=== PATIENT | male | born 1985 | race Caucasian/White ===

== ENCOUNTER 2018-09-02 18:26 | Emergency (ER) | payer SELFPAY ==
[2018-09-02 18:26] VITALS: BP 159/98; PULSE 82; RESP 16; O2SAT 99
[2018-09-02 18:27] VITALS: BP 159/98; PULSE 81; RESP 16; TEMP 36.1; O2SAT 99; BMI 20.5
--- NOTE | 2018-09-02 20:12 | ED.RN ---
PT INITIALLY CALLED FOR AT 1939, NO ANDRIY IN ED. PT CALLED AGAIN AT 2010, NOT IN ED. REGISTRATION MADE AWARE AND PT MARKED LWBS.
== END 2018-09-02 20:19 | disposition left against medical advice (07) ==
LOC: ED 20:16
PROVIDERS: Emergency Provider Emergency Medicine
DX: R69 Illness, unspecified (principal)

== ENCOUNTER 2020-12-23 10:05 | Inpatient (IN) | payer MEDICAID, SELFPAY ==
[2020-12-23 10:05] VITALS: BP 146/100; PULSE 119; RESP 16; TEMP 36; O2SAT 99; BMI 23.1
--- NOTE | 2020-12-23 10:16 | ED.DCSUM_ITS ---
- ER Visit Summary Date of Service: 12/23/20 Chief Complaint: Here for opiate detox History of Present Illness: The patient is a 35 M with no primary care physician. He reports that he snorts heroin/fentanyl daily for the past 3 months. Last use was approximately 7 hours ago. Is never been through detox. States it is starting to have withdrawal symptoms and has chills. Patient denies any IV drug abuse. Reports he occasionally use marijuana and methamphetamine. Review of systems: General: No fever, cold sweats. Cardiovascular: No chest pain, palpitations. Respiratory: No cough, shortness of breath, dyspnea on exertion. Gastrointestinal: No abdominal pain, nausea, vomiting, diarrhea, melena, or hematochezia. Genitourinary: No dysuria, frequency, hematuria. Skin: No rash. Neuro: No headache, numbness, weakness. Physical Examination: Vitals: Stable. Afebrile. General: Well-nourished and well-developed. Head: Normocephalic atraumatic. Neck: Supple, no lymphadenopathy. No JVD. Nontender. Cardiovascular: Tachycardic regular rhythm. No murmurs. Respiratory: No respiratory distress. Clear to auscultation bilaterally. Abdominal: Soft, nontender, nondistended, normal bowel sounds. No guarding, rebound, or peritoneal signs. Back: Nontender. Extremities: Nontender, no edema. Skin: Normal color, no rash. Neurologic: Alert and oriented ?3. Cranial nerves II through XII are intact. Normal strength and sensation. Psych: Normal affect. Test Results: CBC is normal. Chem-7 shows a potassium 3.4. LFTs show an AST of 14. Tox screen shows opiates and methamphetamine. Emergency Department Course and Treatment: Patient reports that he feels very anxious. Is given a dose of Vistaril p.o. He is resting comfortably. Treatment Plan: Patient be discussed the hospitalist admitted for further evaluation and treatment. Disposition: Admitted in stable condition. Impression: 1. Opiate abuse. 2. Anxiety. This note was generated with [employer] software. It may contain incorrect words, spelling, and punctuation that were not noted in review of the chart prior to signing ED Disposition - Plan for ED Patient: Referrals: Care Physician,No Primary [Primary Care Provider] -
[2020-12-23] MEDS: hydrOXYzine PAM 25 MG Capsule 50 MG PO (10:18)
[2020-12-23 10:30] LABS: Absolute Lymphocyte Count 2.82 X10^3/uL (0.83-4.51); Absolute Neutrophil Count 5.6 X10^3/uL (2.0-7.7); Basophil# 0.04 X10^3/uL; Basophil% 0.4 % (0-1); Eosinophil# 0.14 X10^3/uL; Eosinophils% 1.5 % (0-5); Hematocrit 45.2 % (40-54); Hemoglobin 15.5 g/dL (13.0-16.5); Lymphocyte # 2.82 X10^3/ul (4.0); Lymphocyte % 30.2 % (19-41); Mean Corp Hgb Conc 34.3 g/dL (32-36); Mean Corpuscular Hgb 29.3 pg (27.0-32.0); Mean Corpuscular Volume 85.4 fL (80-94); Mean Platelet Vol. 9.8 fl (6.2-12.0); Monocyte# 0.68 X10^3/uL; Monocyte% 7.3 % (0-10); NRBC Flagged by Analyzer 0 % (0-5); Neutrophil # 5.63 X10^3/uL (2.7-7.7); Neutrophil % 60.4 % (47-70); Platelet Count 431 K/mm3 (150-450); RBC Distribution Width CV 11.7 % (11.6-14.6); RBC Distribution Width SD 35.6 fl (35.1-43.9); Red Blood Count 5.29 M/mm3 (4.6-6.2); White Blood Count 9.3 K/mm3 (4.4-11.0)
--- NOTE | 2020-12-23 10:42 | HP.PCM_ITS ---
Problem List (1) Acute hyperactive opioid withdrawal delirium Status: Acute (2) Polysubstance dependence including opioid drug with daily use Status: Acute (3) Cigarette nicotine dependence Status: Acute History of Present Illness Date of Admission: 12/23/20 Chief Complaint: Acute opioid withdrawal syndrome. [] This is a 35-year-old gentleman with history of chronic opioid use for about 10 to 15 years came to ER for anxiety, restlessness, sweating muscle aches and pain, symptomatology of acute opioid withdrawal syndrome. Patient wants medical treatment. Last year, he was in the assisted for opioid dependence and was sent to inpatient rehab 180 and was there for a month but he relapsed. Patient denies using IV needle, denies infectious disease including hepatitis B, C and HIV. Denies any major complications in the past including bacteremia, abscess, endocarditis or osteomyelitis. In ED, patient was tachycardic, heart rate about 120 per night, blood pressure 146/100 but not tachypneic or hypoxic. Basic labs done in ED was normal except potassium 3.4. U tox positive of opioids, amphetamines. Serum alcohol level less than 3. Patient denies chronic alcohol use current but he was a heavy liquor drinker for 10 years, quit about 5 years ago. Denies any stigmata of chronic liver disease/cirrhosis Past Medical History Allergies No Known Allergies Allergy (Verified 12/23/20 10:06) Home Medications: Ambulatory Orders Medication Instructions Recorded NK 09/02/18 Smoking Status: Current every day smoker - Cigarette smoking 1-1 and half packs per day Alcohol: None Drugs: Cocaine, Heroin - *Family History Maternal History Items: - - Depression Review of Systems Constitutional: Reports: Chills, Night Sweats, Malaise, Weakness, Fatigue. Denies: Fever HEENT: Denies: Head Aches, Sinus Congestion, Sinus Drainage Cardiovascular: Denies: Chest Pain, Palpitations Respiratory: Denies: Cough, Shortness of breath at rest, Sputum production Gastrointestinal: Denies: Abdominal Pain, Nausea, Vomiting Genitourinary: Denies: Dysuria Musculoskeletal: Reports: Muscle pain. Denies: Joint Pain, Joint Tenderness Skin: Denies: Rash, Wounds Neurological: Denies: Numbness, Tingling, Focal weakness Psychiatric: Reports: Anxiety, Depression. Denies: Homicidal Ideations, Suicidal Ideations Hematologic/ Lymphatic: Denies: Easy Bruising, Easy Bleeding VTE Information - Inpt Only VTE Present on Admission: No VTE Mechan Device Prophylaxis: None VTE Pharm Prophylaxis ordered?: No Reason prophylaxis not ordered:: Procedure Not Indicated Objective: Physical exam General: Alert, Oriented x3, Cooperative HEENT: Atraumatic, PERRLA, EOMI, Normocephalic Oral: No Gingival or Mucosal Lesions/ Ulcerations Neck: Supple, No JVD, Negative Carotid Bruits Lungs: Air entry equal in bilateral lung bases. No crepitation/rhonchi Cardiovascular: Regular rate, Regular Rhythm, Normal S1, Normal S2, No murmurs Abdomen: Bowel Sounds Present, Soft, Non Tender, Non-Distended : No renal angle tenderness. No suprapubic tenderness. Extremities: No edema, Capillary Refill Less than 3 Seconds Skin: No rashes, No breakdown Musculoskeletal: No Tenderness to Palpation of Joints or Extremities Neurological: Cranial nerves II-XII grossly intact, Deep Tendon Reflexes 2+/4 and Symmetrical, Neuro grossly intact Psych/Mental Status: Anxious, restless. - Physical Exam Vitals/I&O's: Vital Signs Temp Pulse Resp BP Pulse Ox 96.8 F L 119 H 16 146/100 H 99 12/23/20 10:05 12/23/20 10:05 12/23/20 10:05 12/23/20 10:05 12/23/20 10:05 Oxygen Delivery Method Room Air Weight: 180 lb Body Mass Index (BMI) 23.1 Laboratory Results 12/23/20 10:20: WBC 9.3, RBC 5.29, Hgb 15.5, Hct 45.2, MCV 85.4, MCH 29.3, MCHC 34.3, RDW Std Deviation 35.6, RDW Coeff of Kevin 11.7, Plt Count 431, MPV 9.8, Immature Gran % (Auto) 0.200, Neut % (Auto) 60.4, Lymph % (Auto) 30.2, [place] % (Auto) 7.3, Eos % (Auto) 1.5, Baso % (Auto) 0.4, Absolute Neuts (auto) 5.6, Absolute Lymphs (auto) 2.82, Nucleated RBC % 0 12/23/20 10:20: Sodium Pending, Potassium Pending, Chloride Pending, Carbon Dioxide Pending, Anion Gap Pending, BUN Pending, Creatinine Pending, Est GFR (MDRD) Af Amer Pending, Est GFR (MDRD) Non-Af Pending, BUN/Creatinine Ratio Pending, Glucose Pending, Calcium Pending, Total Bilirubin Pending, AST Pending, ALT Pending, Alkaline Phosphatase Pending, Total Protein Pending, Albumin Pending 12/23/20 10:20: Ethyl Alcohol Pending 12/23/20 10:22: Urine Opiates Screen Pending, Urine Methadone Screen Pending, Ur Barbiturates Screen Pending, Ur Phencyclidine Scrn Pending, Ur Amphetamines Screen Pending, U Methamphetamin-MDMA Pending, U Benzodiazepines Scrn Pending, Urine Cocaine Screen Pending, U Cannabinoids Screen Pending, Ur Drug Screen Comment Assessment/Plan All Active Problems Acute hyperactive opioid withdrawal delirium (Acute) Polysubstance dependence including opioid drug with daily use (Acute) Cigarette nicotine dependence (Acute) This is a 35-year-old gentleman with history of chronic opioid use admitted for acute opioid withdrawal syndrome 1. Acute opioid withdrawal syndrome: Patient is being admitted on [facility] floor. Started on buprenorphine, order set along with other supportive medications including gabapentin, clonidine, hydroxyzine, trazodone and methocarbamol. Patient uses one quarter to half gram of fentanyl every day. He mainly ages through his snorting or smoking. Mild hypokalemia, potassium replaced 2. Chronic opioid use, dependence and tolerance along with intermittent methamphetamine/crack cocaine: Counseling done to quit. Consult 180. 3. Chronic cigarette smoking: On nicotine patch. Counseled quitting smoking/nicotine use. 4. Anxiety and depression: Patient was using Wellbutrin in the past. His f amily history of depression and his mother on Zoloft. VTE prophylaxis: Low risk early ambulation encouraged. Inpatient E&M: [id number] Init Hosp L3
[2020-12-23 10:46] LABS: ALB/GLOB Ratio 1.2 RATIO (0.9-2.4); AST(SGOT) 14 U/L (15-37); Alanine Aminotransfer ALT/SGPT 26 U/L (16-61); Albumin, Serum 4.2 g/dL (3.2-5.0); Alkaline Phosphatase 60 U/L (45-117); Anion Gap 7 (5-15); BUN 8 mg/dL (7-18); BUN/Creat Ratio 7.6 RATIO (10-20); Calcium,Total 9.2 mg/dL (8.5-10.1); Chloride 104 mmol/L (98-107); Creatinine, Serum 1.05 mg/dL (0.70-1.30); EST Glomerular Filtration Rate 85 mL/min (>60); Est Glom Filt Rate - Afr Amer 103 mL/min (>60); Globulin 3.5 g/dL (2.2-4.2); Glucose 105 mg/dL (74-106); Potassium 3.4 mmol/L (3.5-5.1); Protein, Total 7.7 g/dL (6.4-8.2); Sodium Level 139 mmol/L (136-145)
[2020-12-23 10:49] LABS: Amphetamine Urine VISTA POSITIVE (<1000 ng/mL); Barbiturate Urine VISTA NEGATIVE (< 200 ng/mL); Benzodiazepine Urine VISTA NEGATIVE (< 200 ng/mL); Cocaine Urine VISTA NEGATIVE (< 300 ng/mL); Ecstacy Urine VISTA NEGATIVE (< 500 ng/mL); Methadone Urine VISTA NEGATIVE (< 300 ng/mL); PCP Urine VISTA NEGATIVE (< 25 ng/mL); THC Urine VISTA NEGATIVE (< 50 ng/mL); Vista UDS pH Range 5
[2020-12-23 11:11] LABS: Prothrombin Time (Protime)PT. 12.2 SECONDS (11.7-14.9)
[2020-12-23 11:15] LABS: Alcohol, Blood (Medical)-Serum < 3.0 mg/dL
[2020-12-23 11:16] VITALS: BP 136/99; PULSE 110; RESP 15; TEMP 35.9; O2SAT 98
--- NOTE | 2020-12-23 11:28 | CM.ED ---
Social Work Patient to admit to [facility] program. This social media senior associate unable to meet with patient prior to patient admission to unit. Telephone call to [facility], Anjana updated on patient admission to [facility] program. Linda ROCHA, MERRICK
[2020-12-23 11:43] VITALS: BMI 23.4; BMI 23.5
[2020-12-23 12:05] VITALS: BP 140/78; PULSE 90; RESP 18; TEMP 36.6; O2SAT 100
--- NOTE | 2020-12-23 12:13 | ADDICTION ---
This service writer met with PT in his room to complete ASAM assessment and to plan for d/c. All assessments completed and faxed to [facility] and placed in PT's chart. PT to directly admit into [facility] post d/c from [facility]. Admit date planned for 12/26/20.
[2020-12-23] MEDS: Buprenorphine HCl 2 MG TAB.SUBL SL ×2 (13:12→21:44)
[2020-12-23] MEDS: Potassium Chloride Oral Tablet 20 MEQ 40 MEQ PO (13:38)
[2020-12-23 17:48] VITALS: BP 121/79; PULSE 108; RESP 16; TEMP 36.8; O2SAT 98
[2020-12-23 18:05] VITALS: PULSE 108
[2020-12-23 21:47] VITALS: BP 111/75; PULSE 101; RESP 18; TEMP 36.6; O2SAT 97
[2020-12-24] MEDS: Buprenorphine HCl 2 MG TAB.SUBL SL ×3 (04:54→21:19)
[2020-12-24 04:55] VITALS: BP 149/86; PULSE 93; RESP 16; TEMP 36.6; O2SAT 96
[2020-12-24 10:55] VITALS: BP 135/79; PULSE 94; RESP 18; TEMP 37; O2SAT 100
[2020-12-24 13:07] VITALS: BP 138/87
[2020-12-24] MEDS: Methocarbamol 750 MG Tablet 1500 MG PO (13:07)
[2020-12-24] MEDS: Dicyclomine 10 MG Capsule 20 MG PO (13:08)
[2020-12-24] MEDS: hydrOXYzine PAM 25 MG Capsule 50 MG PO (13:08)
[2020-12-24] MEDS: Ondansetron 8 MG Tablet PO (13:08)
[2020-12-24] MEDS: Gabapentin 300 MG Capsule PO (13:08)
[2020-12-24] MEDS: cloNIDine HCl 0.1 MG Tablet PO (13:08)
[2020-12-24] MEDS: Ibuprofen 600 MG Tablet PO (13:08)
--- NOTE | 2020-12-24 13:50 | PCM.PN.HOSP ---
Patient Problems: Active and Suspected Problems Acute hyperactive opioid withdrawal delirium (Acute) Polysubstance dependence including opioid drug with daily use (Acute) Cigarette nicotine dependence (Acute) Reason for Visit: Follow-up for opioid withdrawal Objective: Seen and examined. Patient does not have significant withdrawal symptoms including tremors also has anxiety and restlessness. Physical exam General: Alert, Oriented x3, Cooperative HEENT: Atraumatic, PERRLA, EOMI, Normocephalic Oral: No Gingival or Mucosal Lesions/ Ulcerations Neck: Supple, No JVD, Negative Carotid Bruits Lungs: Air entry equal in bilateral lung bases. No crepitation/rhonchi Cardiovascular: Regular rate, Regular Rhythm, Normal S1, Normal S2, No murmurs Abdomen: Bowel Sounds Present, Soft, Non Tender, Non-Distended : No renal angle tenderness. No suprapubic tenderness. Extremities: No edema, Capillary Refill Less than 3 Seconds Skin: No rashes, No breakdown Musculoskeletal: No Tenderness to Palpation of Joints or Extremities Neurological: Cranial nerves II-XII grossly intact, Deep Tendon Reflexes 2+/4 and Symmetrical, Neuro grossly intact Psych/Mental Status: Anxious and restless. Vitals/I&O's: Vital Signs Temp Pulse Resp BP Pulse Ox 98.6 F 94 18 138/87 H 100 12/24/20 10:55 12/24/20 10:55 12/24/20 10:55 12/24/20 13:07 12/24/20 10:55 Oxygen Delivery Method Room Air Weight: 182 lb 12.211 oz Body Mass Index (BMI) 23.4 Intake and Output for Last 24 Hours 12/22/20 12/23/20 12/24/20 23:59 23:59 23:59 Intake Total 240 / 240 Balance 240 / 240 Current Medications Acetaminophen (Acetaminophen 325 Mg Tablet) 650 mg PO Q4H PRN PRN PRN Reason: Temp > 100.4 F Al Hydroxide/Mg Hydroxide (Mag Hydrox/Al Hydrox/Simeth 30 Ml Udc) 30 ml PO Q6H PRN PRN PRN Reason: dyspesia Bisacodyl (Bisacodyl 10 Mg Suppository) 10 mg RC DAILY PRN PRN Reason: Constipation Buprenorphine HCl (Buprenorphine Hcl 2 Mg Tab.Subl) 2 mg SL Q8H MIRZA; Taper Stop: 12/26/20 13:29 Last Admin: 12/24/20 13:01 Dose: 2 mg Documented by: Clonidine (Clonidine Hcl 0.1 Mg Tablet) 0.1 mg PO Q8H PRN PRN PRN Reason: RESTLESSNESS Last Admin: 12/24/20 13:08 Dose: 0.1 mg Documented by: Dicyclomine HCl (Dicyclomine 10 Mg Capsule) 20 mg PO Q6H PRN PRN PRN Reason: Abdominal Discomfort Last Admin: 12/24/20 13:08 Dose: 20 mg Documented by: Gabapentin (Gabapentin 300 Mg Capsule) 300 mg PO Q8H PRN PRN PRN Reason: moderate to severe anxiety Last Admin: 12/24/20 13:08 Dose: 300 mg Documented by: Hydroxyzine Pamoate (Hydroxyzine Urvashi 25 Mg Capsule) 50 mg PO Q6H PRN PRN PRN Reason: mild anxiety Last Admin: 12/24/20 13:08 Dose: 50 mg Documented by: Sodium Chloride () 250 mls @ 15 mls/hr IV .[id number] PRN PRN Reason: Saline Flush Sodium Chloride () 250 mls @ 15 mls/hr IV .[id number] PRN PRN Reason: Additional IVPB Infusion Ibuprofen (Ibuprofen 600 Mg Tablet) 600 mg PO Q8H PRN PRN PRN Reason: PAIN Last Admin: 12/24/20 13:08 Dose: 600 mg Documented by: Loperamide HCl (Loperamide 2 Mg Capsule) 2 mg PO Q4H PRN PRN PRN Reason: LOOSE STOOLS Methocarbamol (Methocarbamol 750 Mg Tablet) 1,500 mg PO Q6H PRN PRN PRN Reason: MUSCLE SPASM Last Admin: 12/24/20 13:07 Dose: 1,500 mg Documented by: Nicotine (Nicotine 21 Mg Patch) 21 mg TD DAILY MIRZA Last Admin: 12/24/20 08:58 Dose: 21 mg Documented by: Ondansetron HCl (Ondansetron 8 Mg Tablet) 8 mg PO Q8H PRN PRN PRN Reason: NAUSEA Last Admin: 12/24/20 13:08 Dose: 8 mg Documented by: Senna (Senna Tablet) 2 tablet PO QHS PRN PRN PRN Reason: Constipation Sodium Chloride (0.9% Saline Lock 10 Ml Syringe) 10 - 40 ml IV UD PRN PRN Reason: SALINE FLUSH Trazodone HCl (Trazodone 100 Mg Tablet) 100 mg PO QHS PRN PRN PRN Reason: INSOMNIA STROKE Vital Signs/Narrative: Vital Signs Temp Pulse Resp BP BP Pulse Ox 12/24/20 13:07 138/87 H 12/24/20 10:55 98.6 F 94 18 135/79 H 100 Medical Necessity - Tobacco Use Smoking Status: Current every day smoker Assessment/Plan All Active Problems Acute hyperactive opioid withdrawal delirium (Acute) Polysubstance dependence including opioid drug with daily use (Acute) Cigarette nicotine dependence (Acute) This is a 35-year-old gentleman with history of chronic opioid use admitted for acute opioid withdrawal syndrome 1. Acute opioid withdrawal syndrome: [facility] Started on buprenorphine, order set along with other supportive medications including gabapentin, clonidine, hydroxyzine, trazodone and methocarbamol. Patient uses one quarter to half gram of fentanyl every day. He mainly ages through his snorting or smoking. Mild hypokalemia, potassium replaced 12/24: Continue buprenorphine and other supportive medications. 2. Chronic opioid use, dependence and tolerance along with intermittent methamphetamine/crack cocaine: Counseling done to quit. Consult 180. 12/24: Patient agreed to quit opioids. 3. Chronic cigarette smoking: On nicotine patch. Counseled quitting smoking/nicotine use. 4. Anxiety and depression: Patient was using Wellbutrin in the past. His family history of depression and his mother on Zoloft. VTE prophylaxis: Low risk early ambulation encouraged. Inpatient E&M: [id number] Subs Hosp L2
[2020-12-24 17:00] VITALS: BP 112/65; PULSE 89; RESP 18; TEMP 36.4; O2SAT 97
[2020-12-24 21:15] VITALS: BP 112/70; PULSE 64; RESP 18; TEMP 36.5; O2SAT 98
[2020-12-25 03:07] VITALS: BP 124/73; PULSE 78; RESP 16; TEMP 36.7; O2SAT 100
[2020-12-25] MEDS: cloNIDine HCl 0.1 MG Tablet PO ×2 (03:13→17:02)
[2020-12-25] MEDS: Gabapentin 300 MG Capsule PO ×2 (03:13→17:02)
[2020-12-25] MEDS: hydrOXYzine PAM 25 MG Capsule 50 MG PO ×3 (03:13→17:02)
[2020-12-25 05:29] VITALS: BP 113/70; PULSE 94; RESP 16; TEMP 36.9; O2SAT 95
[2020-12-25] MEDS: Buprenorphine HCl 2 MG TAB.SUBL SL ×2 (05:31→13:34)
--- NOTE | 2020-12-25 11:04 | PCM.PN.HOSP ---
Patient Problems: Active and Suspected Problems Acute hyperactive opioid withdrawal delirium (Acute) Polysubstance dependence including opioid drug with daily use (Acute) Cigarette nicotine dependence (Acute) Reason for Visit: Follow-up for opioid withdrawal syndrome Objective: Patient symptoms are well controlled. Sitting on the bed. Stocking coherent. Denies hallucinations, myoclonus or seizure-like activity. Physical exam General: Alert, Oriented x3, Cooperative HEENT: Atraumatic, PERRLA, EOMI, Normocephalic Oral: No Gingival or Mucosal Lesions/ Ulcerations Neck: Supple, No JVD, Negative Carotid Bruits Lungs: Air entry equal in bilateral lung bases. No crepitation/rhonchi Cardiovascular: Regular rate, Regular Rhythm, Normal S1, Normal S2, No murmurs Abdomen: Bowel Sounds Present, Soft, Non Tender, Non-Distended : No renal angle tenderness. No suprapubic tenderness. Extremities: No edema, Capillary Refill Less than 3 Seconds Skin: No rashes, No breakdown Musculoskeletal: No Tenderness to Palpation of Joints or Extremities Neurological: Cranial nerves II-XII grossly intact, Deep Tendon Reflexes 2+/4 and Symmetrical, Neuro grossly intact Psych/Mental Status: Normal Affect, Appropriate. Vitals/I&O's: Vital Signs Temp Pulse Resp BP Pulse Ox 98.4 F 94 16 113/70 95 12/25/20 05:29 12/25/20 05:29 12/25/20 05:29 12/25/20 05:29 12/25/20 05:29 Oxygen Delivery Method Room Air Weight: 182 lb 12.211 oz Body Mass Index (BMI) 23.4 Intake and Output for Last 24 Hours 12/23/20 12/24/20 12/25/20 23:59 23:59 23:59 Intake Total 240 / 240 Balance 240 / 240 Current Medications Acetaminophen (Acetaminophen 325 Mg Tablet) 650 mg PO Q4H PRN PRN PRN Reason: Temp > 100.4 F Al Hydroxide/Mg Hydroxide (Mag Hydrox/Al Hydrox/Simeth 30 Ml Udc) 30 ml PO Q6H PRN PRN PRN Reason: dyspesia Bisacodyl (Bisacodyl 10 Mg Suppository) 10 mg RC DAILY PRN PRN Reason: Constipation Buprenorphine HCl (Buprenorphine Hcl 2 Mg Tab.Subl) 2 mg SL Q8H MIRZA; Taper Stop: 12/26/20 13:29 Last Admin: 12/25/20 05:31 Dose: 2 mg Documented by: Clonidine (Clonidine Hcl 0.1 Mg Tablet) 0.1 mg PO Q8H PRN PRN PRN Reason: RESTLESSNESS Last Admin: 12/25/20 03:13 Dose: 0.1 mg Documented by: Dicyclomine HCl (Dicyclomine 10 Mg Capsule) 20 mg PO Q6H PRN PRN PRN Reason: Abdominal Discomfort Last Admin: 12/24/20 13:08 Dose: 20 mg Documented by: Gabapentin (Gabapentin 300 Mg Capsule) 300 mg PO Q8H PRN PRN PRN Reason: moderate to severe anxiety Last Admin: 12/25/20 03:13 Dose: 300 mg Documented by: Hydroxyzine Pamoate (Hydroxyzine Urvashi 25 Mg Capsule) 50 mg PO Q6H PRN PRN PRN Reason: mild anxiety Last Admin: 12/25/20 09:50 Dose: 50 mg Documented by: Sodium Chloride () 250 mls @ 15 mls/hr IV .[id number] PRN PRN Reason: Saline Flush Sodium Chloride () 250 mls @ 15 mls/hr IV .[id number] PRN PRN Reason: Additional IVPB Infusion Ibuprofen (Ibuprofen 600 Mg Tablet) 600 mg PO Q8H PRN PRN PRN Reason: PAIN Last Admin: 12/24/20 13:08 Dose: 600 mg Documented by: Loperamide HCl (Loperamide 2 Mg Capsule) 2 mg PO Q4H PRN PRN PRN Reason: LOOSE STOOLS Methocarbamol (Methocarbamol 750 Mg Tablet) 1,500 mg PO Q6H PRN PRN PRN Reason: MUSCLE SPASM Last Admin: 12/24/20 13:07 Dose: 1,500 mg Documented by: Nicotine (Nicotine 21 Mg Patch) 21 mg TD DAILY MIRZA Last Admin: 12/25/20 09:50 Dose: 21 mg Documented by: Ondansetron HCl (Ondansetron 8 Mg Tablet) 8 mg PO Q8H PRN PRN PRN Reason: NAUSEA Last Admin: 12/24/20 13:08 Dose: 8 mg Documented by: Senna (Senna Tablet) 2 tablet PO QHS PRN PRN PRN Reason: Constipation Sodium Chloride (0.9% Saline Lock 10 Ml Syringe) 10 - 40 ml IV UD PRN PRN Reason: SALINE FLUSH Trazodone HCl (Trazodone 100 Mg Tablet) 100 mg PO QHS PRN PRN PRN Reason: INSOMNIA Medical Necessity - Tobacco Use Smoking Status: Current every day smoker Assessment/Plan All Active Problems Acute hyperactive opioid withdrawal delirium (Acute) Polysubstance dependence including opioid drug with daily use (Acute) Cigarette nicotine dependence (Acute) This is a 35-year-old gentleman with history of chronic opioid use admitted for acute opioid withdrawal syndrome 1. Acute opioid withdrawal syndrome: Patient is being admitted on [facility] floor. Started on buprenorphine, order set along with other supportive medications including gabapentin, clonidine, hydroxyzine, trazodone and methocarbamol. Patient uses one quarter to half gram of fentanyl every day. He mainly ages through his snorting or smoking. Mild hypokalemia, potassium replaced 12/24: Continue buprenorphine and other supportive medications. 12/25: Continue the above medications. No hallucination, tremors, shaking, seizure-like movement. Patient still has mild restless leg and anxiety. 2. Chronic opioid use, dependence and tolerance along with intermittent methamphetamine/crack cocaine: Counseling done to quit. Consult 180. 12/24: Patient agreed to quit opioids. 3. Chronic cigarette smoking: On nicotine patch. Counseled quitting smoking/nicotine use. 4. Anxiety and depression: Patient was using Wellbutrin in the past. His family history of depression and his mother on Zoloft. VTE prophylaxis: Low risk early ambulation encouraged. Discharge plan: Discharge to inpatient [facility] rehab tomorrow about 10 AM. Inpatient E&M: [id number] [facility] Hosp L2
[2020-12-25 11:11] VITALS: BP 120/75; PULSE 88; RESP 18; TEMP 36.8; O2SAT 98
[2020-12-25 16:57] VITALS: BP 132/87; PULSE 100; RESP 18; TEMP 36.8; O2SAT 97
[2020-12-25 21:58] VITALS: BP 119/64; PULSE 85; RESP 16; TEMP 36.5; O2SAT 100
[2020-12-26 01:37] VITALS: BP 114/76; PULSE 93; RESP 16; TEMP 36.6; O2SAT 100
[2020-12-26] MEDS: Buprenorphine HCl 2 MG TAB.SUBL SL (01:39)
[2020-12-26 06:21] VITALS: BP 146/82; PULSE 91
[2020-12-26] MEDS: cloNIDine HCl 0.1 MG Tablet PO (06:22)
[2020-12-26] MEDS: hydrOXYzine PAM 25 MG Capsule 50 MG PO (06:22)
[2020-12-26] MEDS: Methocarbamol 750 MG Tablet 1500 MG PO (07:37)
--- NOTE | 2020-12-26 07:59 | DCINST_ITS ---
- Discharge Diagnoses Current Active Problems: Current Active and Chronic Problems Acute hyperactive opioid withdrawal delirium (Acute) Polysubstance dependence including opioid drug with daily use (Acute) Cigarette nicotine dependence (Acute) Reason(s) for Visit for Discharge Instructions: Acute opiate withdrawal You will use the following diet at home:: Regular Your food should be the consistency of: Regular Your liquids should be the consistency of: Regular/Thin Discharge Activity: Return to Normal Activity Additional Instructions: You are strongly advised to continue to avoid use of opioids.You are also advised to stop smoking. Follow-up with your outpatient drug rehab program as scheduled. Allergies/Adverse Reactions: Allergies No Known Allergies Allergy (Verified 12/23/20 10:06) Medications to take at Discharge NK 09/02/18 Primary Care Physician: Care Physician,No Primary [Primary Care Provider] - Please follow up with your Primary Care Physician in: within 1-2 weeks of discharge from rehab Test Results: Test results from this visit will be discussed in further detail at your follow- up appointment, if applicable. Proposed Discharge Date: 12/26/20
--- NOTE | 2020-12-26 08:00 | DS.PCM_ITS ---
Discharge Date and Diagnosis - Problem List Patient Problems: Active and Suspected Problems Acute hyperactive opioid withdrawal delirium (Acute) Polysubstance dependence including opioid drug with daily use (Acute) Cigarette nicotine dependence (Acute) Date of Admission: 12/23/20 Date of Discharge: 12/26/20 - Primary Discharge Diagnosis Acute Problems: Active Problems Acute opiate withdrawal Nicotine dependence Hypokalemia Polysubstance use disorder Anxiety/depression Hospital Course and Treatment None Operations: None Procedures: None Summary of Care Provided: The patient is a 35 year old M past medical history of chronic opioid who comes in with opioid withdrawal symptoms requesting medical stabilization. [facility] and managed on the buprenorphine withdrawal protocol. He had hypokalemia on admission that was replaced. There were no acute events. Patient was seen by behavioral community mental health social worker during this hospital stay. He was discharged directly to [facility] facility. Patient Problems: Active and Suspected Problems Acute hyperactive opioid withdrawal delirium (Acute) Polysubstance dependence including opioid drug with daily use (Acute) Cigarette nicotine dependence (Acute) Subjective: No acute events overnight. Objective: Physical exam General: Alert, Oriented x3, Cooperative HEENT: Atraumatic, PERRLA, EOMI, Normocephalic Oral: No Gingival or Mucosal Lesions/ Ulcerations Neck: Supple, No JVD, Negative Carotid Bruits Lungs: Air entry equal in bilateral lung bases. No crepitation/rhonchi Cardiovascular: Regular rate, Regular Rhythm, Normal S1, Normal S2, No murmurs Abdomen: Bowel Sounds Present, Soft, Non Tender, Non-Distended : No renal angle tenderness. No suprapubic tenderness. Extremities: No edema - Physical Exam Vitals/I&O's: Vital Signs Temp Pulse Resp BP Pulse Ox 97.9 F 91 16 146/82 H 100 12/26/20 01:37 12/26/20 06:21 12/26/20 01:37 12/26/20 06:21 12/26/20 01:37 Oxygen Delivery Method Room Air Weight: 82.9 kg Body Mass Index (BMI) 23.4 Current Medications Acetaminophen (Acetaminophen 325 Mg Tablet) 650 mg PO Q4H PRN PRN PRN Reason: Temp > 100.4 F Al Hydroxide/Mg Hydroxide (Mag Hydrox/Al Hydrox/Simeth 30 Ml Udc) 30 ml PO Q6H PRN PRN PRN Reason: dyspesia Bisacodyl (Bisacodyl 10 Mg Suppository) 10 mg RC DAILY PRN PRN Reason: Constipation Buprenorphine HCl (Buprenorphine Hcl 2 Mg Tab.Subl) 2 mg SL Q12H MIRZA; Taper Stop: 12/26/20 13:29 Last Admin: 12/26/20 01:39 Dose: 2 mg Documented by: Clonidine (Clonidine Hcl 0.1 Mg Tablet) 0.1 mg PO Q8H PRN PRN PRN Reason: RESTLESSNESS Last Admin: 12/26/20 06:22 Dose: 0.1 mg Documented by: Dicyclomine HCl (Dicyclomine 10 Mg Capsule) 20 mg PO Q6H PRN PRN PRN Reason: Abdominal Discomfort Last Admin: 12/24/20 13:08 Dose: 20 mg Documented by: Gabapentin (Gabapentin 300 Mg Capsule) 300 mg PO Q8H PRN PRN PRN Reason: moderate to severe anxiety Last Admin: 12/25/20 17:02 Dose: 300 mg Documented by: Hydroxyzine Pamoate (Hydroxyzine Urvashi 25 Mg Capsule) 50 mg PO Q6H PRN PRN PRN Reason: mild anxiety Last Admin: 12/26/20 06:22 Dose: 50 mg Documented by: Sodium Chloride () 250 mls @ 15 mls/hr IV .[id number] PRN PRN Reason: Saline Flush Sodium Chloride () 250 mls @ 15 mls/hr IV .[id number] PRN PRN Reason: Additional IVPB Infusion Ibuprofen (Ibuprofen 600 Mg Tablet) 600 mg PO Q8H PRN PRN PRN Reason: PAIN Last Admin: 12/24/20 13:08 Dose: 600 mg Documented by: Loperamide HCl (Loperamide 2 Mg Capsule) 2 mg PO Q4H PRN PRN PRN Reason: LOOSE STOOLS Methocarbamol (Methocarbamol 750 Mg Tablet) 1,500 mg PO Q6H PRN PRN PRN Reason: MUSCLE SPASM Last Admin: 12/26/20 07:37 Dose: 1,500 mg Documented by: Nicotine (Nicotine 21 Mg Patch) 21 mg TD DAILY MIRZA Last Admin: 12/25/20 09:50 Dose: 21 mg Documented by: Nicotine Polacrilex (Nicotine Polacrilex 4 Mg Gum) 4 mg PO Q2H PRN PRN PRN Reason: nicotine withdrawal Last Admin: 12/26/20 06:17 Dose: 4 mg Documented by: Ondansetron HCl (Ondansetron 8 Mg Tablet) 8 mg PO Q8H PRN PRN PRN Reason: NAUSEA Last Admin: 12/24/20 13:08 Dose: 8 mg Documented by: Senna (Senna Tablet) 2 tablet PO QHS PRN PRN PRN Reason: Constipation Sodium Chloride (0.9% Saline Lock 10 Ml Syringe) 10 - 40 ml IV UD PRN PRN Reason: SALINE FLUSH Trazodone HCl (Trazodone 100 Mg Tablet) 100 mg PO QHS PRN PRN PRN Reason: INSOMNIA Discharge Diet: No Restrictions Discharge Activity: Return to Normal Activity Home Medications: Medications to take at Discharge NK 09/02/18 Primary Care Physician: Care Physician,No Primary [Primary Care Provider] - Please follow up with your Primary Care Physician in: within 1-2 weeks of discharge from rehab Disposition: Home Minutes spent on discharge:: 25 Patient Condition:: Stable Medical Necessity - Tobacco Use Smoking Status: Current every day smoker Tobacco Use: Non-smoker Meaningful Use Info Meaningful Use Diagnoses (Choose all that apply): None applicable Inpatient E&M: 77079 Disch Hosp
[2020-12-26 08:38] LABS: ALB/GLOB Ratio 1.1 RATIO (0.9-2.4); AST(SGOT) 63 U/L (15-37); Alanine Aminotransfer ALT/SGPT 120 U/L (16-61); Alkaline Phosphatase 56 U/L (45-117); Anion Gap 8 (5-15); BUN 9 mg/dL (7-18); BUN/Creat Ratio 10.4 RATIO (10-20); Calcium,Total 8.3 mg/dL (8.5-10.1); Chloride 104 mmol/L (98-107); Creatinine, Serum 0.86 mg/dL (0.70-1.30); EST Glomerular Filtration Rate 107 mL/min (>60); Est Glom Filt Rate - Afr Amer 129 mL/min (>60); Estimated Creatinine Clearance 139.39 ml/min; Globulin 2.8 g/dL (2.2-4.2); Glucose 135 mg/dL (74-106); Potassium 3.9 mmol/L (3.5-5.1); Protein, Total 5.8 g/dL (6.4-8.2); Sodium Level 141 mmol/L (136-145)
[2020-12-26 09:08] VITALS: BP 127/66; PULSE 89; RESP 18; TEMP 37; O2SAT 100
--- NOTE | 2020-12-26 09:12 | ADDICTION ---
This quality analyst/technical writer met with PT in his room to finalize d/c plan. PT to d/c at 10am (12/26/20) and will direct admit into [facility]. [facility] to provide transportation.
[2020-12-26] MEDS: Ibuprofen 600 MG Tablet PO (09:14)
[2020-12-26] MEDS: Gabapentin 300 MG Capsule PO (09:15)
== END 2020-12-26 09:58 | disposition home or self-care (01) | DRG 773 ==
LOC: ED 10:34 → MS3 11:14
PROVIDERS: Admitting Provider Internal Medicine; Emergency Provider Emergency Medicine; Visit Provider Internal Medicine
DX: F11.23 Opioid dependence with withdrawal (principal); F12.90 Cannabis use, unspecified, uncomplicated; F14.90 Cocaine use, unspecified, uncomplicated; F15.90 Other stimulant use, unspecified, uncomplicated; E87.6 Hypokalemia; F41.9 Anxiety disorder, unspecified; F32.9 Major depressive disorder, single episode, unspecified; F17.210 Nicotine dependence, cigarettes, uncomplicated
CPT/HCPCS: 36415; 80053; 80307; 82077; 85025; 85610; 99283; 99406

== ENCOUNTER 2021-05-16 12:54 | Emergency (ER) | payer MEDICAID, SELFPAY ==
[2021-01-16 11:41] VITALS: BMI 25.7
[2021-05-16 12:54] VITALS: BP 137/79; PULSE 61; RESP 16; TEMP 36.6; O2SAT 99; BMI 25.9
--- NOTE | 2021-05-16 13:09 | CM.ED ---
AVANI Note AVANI referral Source: Case Find Reason for Referral: No Primary Care PCP or Telecommunicator Supervisor AVANI met with patient and his caregiver in the room. Patient reports he was feeling better. Caregiver said that she thought that patient's provider was Alecia Rene but she hasn't been there for awhile so she will find another provider at the office. AVANI provided caregiver with list of [facility] Providers. No other concerns or issues voiced by the caregiver. Plan: Patient will be admitted per MD Yamilet ENRIQUEZ
--- NOTE | 2021-05-16 13:14 | CM.ED ---
SW Note Referral Source: Case Find Referral Reason: NO PCP SW met with patient in his room. He indicated that he has no PCP. Patient said that [facility] had scheduled him for PCP but I never showed up to the appointment. SW provided patient with list of providers. No further issues or concerns identified or voiced to this business writer. Plan: Patient provided with list of PCP providers Yamilet ENRIQUEZ
--- NOTE | 2021-05-16 13:27 | EDS_ITS ---
HPI History of Present Illness Chief Complaint: Abscess Detail of Chief Complaint: Redness and swelling to right axilla Informant: patient Narrative Narrative: Patient presents to the emergency department with 2-day history of redness and swelling to the right axilla. He denies any fevers or chills. Patient's been using some warm compresses to the area. He is not had anything like this before. Patient denies recent illness. Prior similar symptoms: No PFSH PFSH Medical History Anxiety Depression Smoker Home Medications buprenorphine-naloxone [Zubsolv] 5.7 tab SUBLINGUAL DAILY 05/16/21 [History Last Taken Unknown] bupropion HCl 150 mg PO DAILY 05/16/21 [History Last Taken Unknown] clindamycin HCl [Cleocin HCl] 300 mg PO Q6H #40 capsule 05/16/21 [Rx Last Taken Unknown] Allergy/AdvReac Type Severity Reaction Status Date / Time No Known Allergies Allergy Verified 05/16/21 12:56 Social History (Updated 01/16/21 @ 12:25 by Henrik GONZALEZ, PA) Smoking Status: Current every day smoker tobacco type: e-cigarettes ROS ROS ED Constitutional Constitutional ED: Reports systems reviewed and no addt'l complaints, except as documented; Denies body ache(s), change in weight or chills Eyes Eyes: Denies acute decrease in peripheral vision, change in vision, double vision or loss of vision ENT ENT ED: Reports none; Denies ear pain, lip swelling, loss taste/smell, neck pain, otalgia or sore throat Cardiovascular Cardiovascular: Reports none; Denies abdominal pain, chest pain with activity, leg edema, lightheadedness, palpitations, rapid heart rate or syncope Respiratory/Chest Respiratory/Chest: Reports none; Denies change in mental status, dry cough, dyspnea, hemoptysis, shortness of breath at rest or shortness of breath with exertion Gastrointestinal Gastrointestinal: Reports none; Denies abdominal pain, change in stool character, diarrhea, hematemesis, hematochezia, melena, rectal bleeding or vomiting Genitourinary Genitourinary ED: Reports none; Denies abdominal discomfort, anuria, dysuria, genital pain or polyuria Musculoskeletal Musculoskeletal: Reports none; Denies arthralgias, back pain, difficulty walking, extremity pain, muscle weakness or myalgias Integumentary Reports none and abscess; Denies rash Neurologic Neurologic: Reports none; Denies abnormal gait, confusion, focal weakness, frequent falls, headache(s), loss of vision, numbness, paresthesias, radicular pain, vertigo or weakness Psychiatric Psychiatric: Reports systems reviewed and no addt'l complaints, except as docu mented and none; Denies behavioral changes, confusion, difficulty concentrating, hallucinations, suicidal ideation, tactile hallucinations or visual hallucinations Endocrine Endocrinology: Denies none, cold intolerance, excessive sweating, fatigue or heat intolerance Hematologic/Lymphatic Hematologic/Lymphatic: Reports none; Denies anemia, easy bleeding or easy bruising Allergic/Immunologic Allergic/Immunologic ED: Denies as per HPI, none, lip swelling, mouth swelling, throat swelling, tongue swelling or hives EXAM Physical Exam Const Vital Signs: 05/16/21 12:54 Temperature 97.8 F Temperature Source Temporal Pulse Rate 61 Respiratory Rate 16 Blood Pressure 137/79 H Blood Pressure Mean 98 Pulse Ox 99 Oxygen Delivery Method Room Air Positive well nourished and well developed General Appearance ED: well developed and NAD HEENT Reports TM's clear and moist mucous membranes normocephalic and atraumatic; Negative for trauma or tenderness Tympanic Membrane ED: Yes TM's clear Eyes PERRL and EOMs intact bilaterally General Eye ED: Negative for pale conjunctiva or scleral icterus Neck no lymphadenopathy, supple and no JVD General: Negative for tenderness Chest Wall inspection of chest normal and palpation of chest normal Chest: Negative for tenderness Resp normal respiratory effort and clear to auscultation bilaterally Effort and Inspection: Negative for respiratory distress or pain with movement Auscultation: Negative for rhonchi, wheezes or diminished lung sounds Cardio regular rate, regular rhythm, S1 normal heart sound, S2 normal heart sound and no murmurs Peripheral Pulses: pulses 2+ throughout GI normal to inspection, nondistended, normoactive bowel sounds, soft to palpation, non-tender, non-distended and no masses Back/Spine no CVA tenderness and no thoracic nor lumbar tenderness Extremity normal to inspection Extremity Narrative: Evaluation of the right axilla reveals an area of soft tissue swelling measuring approximately 2.5 cm x 1.5 cm. There are some faint erythema around the area. There is no fluctuance. Areas somewhat firm and indurated. I suspect likely the start of early abscess and cellulitis. General Extremety ED: Negative for edema General Extremity: Negative for edema Neuro oriented x3, CN's II-XII intact bilaterally, no sensory deficits noted and gait normal Sensorium / Orientation: awake, alert, oriented to person, oriented to place and oriented to time Motor Exam: strength 5/5 throughout and strength abnormal Psych mental status grossly normal Skin no rashes or lesions noted and no wounds MDM MDM MDM Narrative Medical decision making narrative: I discussed treatment options with patient including antibiotics only or attempted incision and drainage and antibiotics. At this point there is no fluctuance to definitively indicate a formed abscess. I did offer to locally anesthetize the area and attempted incision and drainage and then put patient on antibiotics however he does not want to have incision and drainage but would like to try the antibiotics alone first. I feel this is a reasonable approach. Patient was given a dose of clindamycin in the emergency department. Discharge Plan Triage Chief Complaint: Abscess ED Provider: Waldemar Roper Dx/Rx/DC Orders Clinical Impression: Abscess of axilla, right Instructions: ED Abscess Antibiotic Treatment Only Prescriptions: New clindamycin HCl [Cleocin HCl] 300 MG capsule 300 mg PO Q6H Qty: 40 RF: 0 No Action bupropion HCl 150 mg tablet extended release 24 hr 150 mg PO DAILY RF: 0 Zubsolv 2.9-0.71 mg tablet, sublingual 5.7 tab SUBLINGUAL DAILY RF: 0 Primary Care Provider: Care Physician,No Primary Referrals: Tung Moody MD [STAFF PHYSICIAN] - 3-5 Days Care Physician,No Primary [Primary Care Provider] - Disposition Disposition: Home, Self Care
[2021-05-16] MEDS: Clindamycin HCl 150 MG Capsule 300 MG PO (13:37)
[2021-05-16 13:39] VITALS: PULSE 61; RESP 16; O2SAT 98
== END 2021-05-16 13:45 | disposition home or self-care (01) ==
PROVIDERS: Emergency Provider Emergency Medicine
DX: L02.411 Cutaneous abscess of right axilla (principal); F32.9 Major depressive disorder, single episode, unspecified; F41.9 Anxiety disorder, unspecified; Z79.899 Other long term (current) drug therapy; F17.290 Nicotine dependence, other tobacco product, uncomplicated
CPT/HCPCS: 99282

== ENCOUNTER 2023-07-12 16:44 | Observation (INO) | payer MEDICAID, SELFPAY ==
[2023-07-12 16:45] VITALS: BP 145/81; PULSE 73; RESP 16; TEMP 36; O2SAT 100; BMI 28.4
--- NOTE | 2023-07-12 18:29 | EDS_ITS ---
HPI History of Present Illness Chief Complaint: Substance Abuse Informant: patient Narrative Narrative: Patient Carl for detox from heroin/fentanyl. Patient states he has never injected. He always snorts. He uses about half a gram a day. He last used 2 or 3 hours ago. He states if he stops using he will get nauseated sweaty and feel like his skin is crawling off of him. He is not having the symptoms now. His last detox was about 3 years ago and he stayed clean for 2-1/2 years. He denies alcohol use. He denies any medical problems or medications. He has no physical complaints at this time. [facility] Medical History Anxiety Depression Smoker Home Medications NK 07/12/23 [History Last Taken Unknown] Allergy/AdvReac Type Severity Reaction Status Date / Time No Known Allergies Allergy Verified 05/16/21 12:56 Social History Smoking Status: Current every day smoker tobacco type: e-cigarettes ROS ROS ED ROS Narrative A complete review of systems was performed and is negative except as documented in the history of present illness. Some specific details below. Constitutional: No recent fevers or chills. No sweating. EYE: No visual complaints or pain. ENT: No difficulty swallowing. No swelling. No pain. CV: No chest pain or palpitations. Respiratory: No dyspnea. No hemoptysis. No difficulty taking breaths. GI: No nausea vomiting or diarrhea at this time. : No frequency dysuria or hematuria. Musculoskeletal: No recent trauma. No pains. Skin: No rash. Nondiaphoretic at this time but does gets this with withdrawal.. Neuro: No weakness or numbness. No paresthesias. Endocrine: No polyuria or polydipsia. EXAM Physical Exam Narrative Exam Narrative: General: Patient awake alert sitting company in the bed nontoxic. HEENT shows moist mucous membranes. Eyes are about 3 mm and reactive. No photophobia. Neck is supple Heart is regular. No murmur gallop or rub. Lungs are clear bilaterally. Abdomen is soft and nontender. Extremities show multiple tattoos but no edema or tenderness. Neurologically he is awake alert. Const Vital Signs: 07/12/23 16:45 Temperature 96.8 F L Temperature Source Temporal Pulse Rate 73 Respiratory Rate 16 Blood Pressure 145/81 H Blood Pressure Mean 102 Pulse Ox 100 Oxygen Delivery Method Room Air MDM MDM MDM Narrative Medical decision making narrative: Patient CBC shows no marked abnormalities. Patient's electrolytes show no marked abnormalities. Patient's liver function showed no marked abnormalities. Patient's urine toxicology screen is pending. It would likely show opiates but sometimes fentanyl does not show up. I do not think this will manager change. Patient's serum alcohol is also pending but I do not think this will manager change as he is states he is not a drinker. I did discuss case with hospitalist. Patient will be admitted. Lab Data Attestation: I reviewed the patient's lab results. Labs: Laboratory Results - last 24 hr 07/12/23 17:21 WBC 5.8 RBC 5.20 Hgb 14.8 Hct 43.7 MCV 84.0 MCH 28.5 MCHC 33.9 RDW Std Deviation 36.0 RDW Coeff of Kevin 11.9 Plt Count 365 MPV 10.2 Immature Gran % (Auto) 0.300 Neut % (Auto) 59.1 Lymph % (Auto) 28.6 [place] % (Auto) 9.3 Eos % (Auto) 2.4 Baso % (Auto) 0.3 Absolute Neuts (auto) 3.4 Absolute Lymphs (auto) 1.67 Nucleated RBC % 0 Sodium 140 Potassium 3.7 Chloride 108 H Carbon Dioxide 27.0 Anion Gap 5 BUN 9 Creatinine 0.92 Estim Creat Clear Calc 131.39 Est GFR (MDRD) Af Amer 118 Est GFR (MDRD) Non-Af 98 BUN/Creatinine Ratio 9.8 L Glucose 110 H Calcium 8.8 Total Bilirubin 1.00 AST 13 L ALT 32 Alkaline Phosphatase 79 Total Protein 7.1 Albumin 3.8 Globulin 3.3 Albumin/Globulin Ratio 1.2 Discharge Plan Triage Chief Complaint: Substance Abuse ED Provider: Jules Rosenthal Dx/Rx/DC Orders Clinical Impression: Desire for detoxification, Polysubstance dependence including opioid drug with daily use Prescriptions: No Action NK Primary Care Provider: Care Physician,No Primary Referrals: Care Physician,No Primary [Primary Care Provider] - Disposition Disposition: [facility]
[2023-07-12 18:32] LABS: Absolute Lymphocyte Count 1.67 X10^3/uL (0.83-4.51); Absolute Neutrophil Count 3.4 X10^3/uL (2.0-7.7); Basophil# 0.02 X10^3/uL; Basophil% 0.3 % (0-1); Eosinophil# 0.14 X10^3/uL; Eosinophils% 2.4 % (0-5); Hematocrit 43.7 % (40-54); Hemoglobin 14.8 g/dL (13.0-16.5); Lymphocyte # 1.67 X10^3/ul (0.83-4.51); Lymphocyte % 28.6 % (19-41); Mean Corp Hgb Conc 33.9 g/dL (32-36); Mean Corpuscular Hgb 28.5 pg (27.0-32.0); Mean Platelet Vol. 10.2 fl (6.2-12.0); Monocyte# 0.54 X10^3/uL; Monocyte% 9.3 % (0-10); NRBC Flagged by Analyzer 0 % (0-5); Neutrophil # 3.44 X10^3/uL (2.7-7.7); Neutrophil % 59.1 % (47-70); Platelet Count 365 K/mm3 (150-450); RBC Distribution Width CV 11.9 % (11.6-14.6); White Blood Count 5.8 K/mm3 (4.4-11.0)
[2023-07-12 18:38] LABS: ALB/GLOB Ratio 1.2 RATIO (0.9-2.4); AST(SGOT) 13 U/L (15-37); Alanine Aminotransfer ALT/SGPT 32 U/L (16-61); Albumin, Serum 3.8 g/dL (3.2-5.0); Alkaline Phosphatase 79 U/L (45-117); Anion Gap 5 (5-15); BUN 9 mg/dL (7-18); BUN/Creat Ratio 9.8 RATIO (10-20); Calcium,Total 8.8 mg/dL (8.5-10.1); Chloride 108 mmol/L (98-107); Creatinine, Serum 0.92 mg/dL (0.70-1.30); EST Glomerular Filtration Rate 98 mL/min (>60); Est Glom Filt Rate - Afr Amer 118 mL/min (>60); Estimated Creatinine Clearance 131.39 ml/min; Globulin 3.3 g/dL (2.2-4.2); Glucose 110 mg/dL (74-106); Potassium 3.7 mmol/L (3.5-5.1); Protein, Total 7.1 g/dL (6.4-8.2); Sodium Level 140 mmol/L (136-145)
[2023-07-12 18:50] LABS: Alcohol, Blood (Medical)-Serum < 3.0 mg/dL
[2023-07-12 18:59] VITALS: BP 142/81; PULSE 78; RESP 14; O2SAT 99
--- NOTE | 2023-07-12 19:01 | PCM.HP.STD ---
HPI - General General Date of Admission: 07/12/23 Date of Service: 07/12/23 Chief Complaint: Opioid detox HPI Narrative ANDRIY MOORE, is a 37 M w/ hx tobacco use and opioid use who presented to [facility] 07/12/23 requesting opioid detox. Lab work-up overall unremarkable, hospitalist called for admission. Patient reports his last detox was 3 years ago and he was clean for 2-1/2 years before relapsing. Since that time he uses about half a gram a day of either heroin or fentanyl and snorts this, does not use IV. He would like to undergo detox, last use was 2 to 3 hours ago and he reports he starts getting sweaty and uncomfortable if he does not use an once that begins that is when he will go and use again because he cannot tolerate the symptoms. At the time has a stuffy nose and is little sweaty and uncomfortable but does not feel like he is going through full-blown withdrawal yet. He denies alcohol or other substance use aside from vaping [facility] Medical History Anxiety Depression Smoker Home Medications NK 07/12/23 [History Last Taken Unknown] Allergy/AdvReac Type Severity Reaction Status Date / Time No Known Allergies Allergy Verified 05/16/21 12:56 Social History Smoking Status: Current every day smoker tobacco type: e-cigarettes ROS ROS Narrative General: Denies fever/chills but feels a little sweaty and uncomfortable HENT: Denies headache, has stuffy nose, denies sore throat EYES: Denies changes in vision Resp: Denies cough, denies shortness of breath Cardiac: Denies chest pain GI: Denies abdominal pain, denies changes in bowel, denies nausea/vomiting : Denies changes in urination Extremity: Denies swelling MSK: Denies weakness Neuro: Denies any numbness/tingling Heme: Denies any bleeding or bruising Skin: Denies rashes Psychiatric: Little bit anxious Vital Signs Vital Signs Vital Signs: 07/12/23 16:45 07/12/23 18:59 Temperature 96.8 F L Temperature Source Temporal Pulse Rate 73 78 Respiratory Rate 16 14 Blood Pressure 145/81 H 142/81 H Blood Pressure Mean 102 101 Pulse Ox 100 99 Oxygen Delivery Method Room Air Room Air Weight Weight: 103.328 kg Body Mass Index (BMI) 28.4 Physical Exam Narrative General: Alert, oriented, no apparent distress HEENT: Atraumatic, normocephalic Eyes: Anicteric, normal conjunctiva, extraocular movements grossly intact Neck: Supple Respiratory: Clear to auscultation bilaterally, normal respiratory effort Cardiovascular: Regular rate and rhythm GI: Soft, nontender, nondistended Extremities: No edema Musculoskeletal: Moving all extremities Neuro: No overt focal neurological deficits Skin: No rashes appreciated Psych: Cooperative Results Lab / Micro Data 07/12/23 17:21 07/12/23 17:21 Labs: Laboratory Results - last 24 hr 07/12/23 17:21: WBC 5.8, RBC 5.20, Hgb 14.8, Hct 43.7, MCV 84.0, MCH 28.5, MCHC 33.9, RDW Std Deviation 36.0, RDW Coeff of Kevin 11.9, Plt Count 365, MPV 10.2, Immature Gran % (Auto) 0.300, Neut % (Auto) 59.1, Lymph % (Auto) 28.6, [place] % (Auto) 9.3, Eos % (Auto) 2.4, Baso % (Auto) 0.3, Absolute Neuts (auto) 3.4, Absolute Lymphs (auto) 1.67, Nucleated RBC % 0, Sodium 140, Potassium 3.7, Chloride 108 H, Carbon Dioxide 27.0, Anion Gap 5, BUN 9, Creatinine 0.92, Estim Creat Clear Calc 131.39, Est GFR (MDRD) Af Amer 118, Est GFR (MDRD) Non-Af 98, BUN/Creatinine Ratio 9.8 L, Glucose 110 H, Calcium 8.8, Total Bilirubin 1.00, AST 13 L, ALT 32, Alkaline Phosphatase 79, Total Protein 7.1, Albumin 3.8, Globulin 3.3, Albumin/Globulin Ratio 1.2, Ethyl Alcohol < 3.0 Assessment & Plan Assessment/Plan (1) Desire for detoxification: PLAN: Plan #Acute opiate withdrawal - Subutex taper initiated - As needed Tylenol, ibuprofen, bowel regimen, gabapentin, Bentyl, Vistaril, methocarbamol, clonidine - As needed trazodone nightly - As needed antiemetics -Once patient begins to clinically improve will discuss further discharge planning #Tobacco use -Advise cessation, vaping and trying to cut back -Patient declined nicotine replacement #DVT ppx: Ambulatory, low risk Radha Munroe MD Charges/Coding Visit Charges Inpatient E&M: 73946 Init Hosp L1
--- NOTE | 2023-07-12 19:47 | CM.ED ---
Addendum entered by Bhavani Rocha 07/12/23 20:39: Treatment navigator updated patient is being admitted for [facility]. VERONICA Rodriguez Original Note: Social Work SW met with patient and introduced self and role as [facility] SW. Patient seated on hospital bed and agreeable to speak with SW. SW inquired about patient's insurance and current PCP. Patient verified insurance and reports no current PCP. SW provided patient with a list of local PCPs in network with patient's insurance and accepting new patients. SW then educated patient on detox program, [facility]. Patient reports being familiar as he has previously engaged and has no questions. Patient aware personal belongings are locked up, no guests permitted and meeting with detox coordinator for after care planning. Patient voiced understanding and was receptive towards PCP list. Plan: [facility] VERONICA Rodriguez
[2023-07-12 20:08] VITALS: BP 142/71; PULSE 82; RESP 14; TEMP 36.1; O2SAT 97
[2023-07-12 20:17] LABS: Amphetamine Urine VISTA NEGATIVE (<1000 ng/mL); Barbiturate Urine VISTA NEGATIVE (< 200 ng/mL); Benzodiazepine Urine VISTA NEGATIVE (< 200 ng/mL); Cocaine Urine VISTA NEGATIVE (< 300 ng/mL); Ecstacy Urine VISTA NEGATIVE (< 500 ng/mL); Methadone Urine VISTA NEGATIVE (< 300 ng/mL); PCP Urine VISTA NEGATIVE (< 25 ng/mL); THC Urine VISTA NEGATIVE (< 50 ng/mL); Vista UDS pH Range 5
[2023-07-12 21:08] VITALS: BMI 28.2
[2023-07-12 21:33] VITALS: BP 153/81; PULSE 68; RESP 16; TEMP 36.8; O2SAT 99
[2023-07-13 00:22] VITALS: BP 135/84; PULSE 70; RESP 18; TEMP 37; O2SAT 98
[2023-07-13] MEDS: Gabapentin 300 MG Capsule PO ×2 (00:23→10:29)
[2023-07-13] MEDS: cloNIDine HCl 0.1 MG Tablet PO ×2 (00:23→10:29)
[2023-07-13] MEDS: Buprenorphine HCl 2 MG TAB.SUBL 4 MG SL ×3 (00:23→14:30)
[2023-07-13 04:40] VITALS: BP 127/78; PULSE 67; RESP 16; TEMP 36.6; O2SAT 99
--- NOTE | 2023-07-13 07:38 | PCM.PN.HOSP ---
Subjective Subjective Feels ill but feeling better. Objective Data Objective Data Vital Signs: Vital Signs Temp Pulse Resp BP Pulse Ox O2 Del Method 36.6 C 67 16 127/78 H 99 Room Air 07/13/23 04:40 07/13/23 04:40 07/13/23 04:40 07/13/23 04:40 07/13/23 04:40 07/13/23 04:40 Oxygen Delivery Method Room Air Weight: 102.512 kg Body Mass Index (BMI) 28.2 Intake & Output: Intake and Output for Last 24 Hours 07/11/23 07/12/23 07/13/23 23:59 23:59 23:59 Intake Total 400 / 400 500 / 500 Balance 400 / 400 500 / 500 Lab / Micro Data 07/12/23 17:21 07/12/23 17:21 Labs: Laboratory Results - last 24 hr 07/12/23 17:21: WBC 5.8, RBC 5.20, Hgb 14.8, Hct 43.7, MCV 84.0, MCH 28.5, MCHC 33.9, RDW Std Deviation 36.0, RDW Coeff of Kevin 11.9, Plt Count 365, MPV 10.2, Immature Gran % (Auto) 0.300, Neut % (Auto) 59.1, Lymph % (Auto) 28.6, [place] % (Auto) 9.3, Eos % (Auto) 2.4, Baso % (Auto) 0.3, Absolute Neuts (auto) 3.4, Absolute Lymphs (auto) 1.67, Nucleated RBC % 0, Sodium 140, Potassium 3.7, Chloride 108 H, Carbon Dioxide 27.0, Anion Gap 5, BUN 9, Creatinine 0.92, Estim Creat Clear Calc 131.39, Est GFR (MDRD) Af Amer 118, Est GFR (MDRD) Non-Af 98, BUN/Creatinine Ratio 9.8 L, Glucose 110 H, Calcium 8.8, Total Bilirubin 1.00, AST 13 L, ALT 32, Alkaline Phosphatase 79, Total Protein 7.1, Albumin 3.8, Globulin 3.3, Albumin/Globulin Ratio 1.2, Ethyl Alcohol < 3.0 07/12/23 19:40: Urine Opiates Screen NEGATIVE, Urine Methadone Screen NEGATIVE, Ur Barbiturates Screen NEGATIVE, Ur Phencyclidine Scrn NEGATIVE, Ur Amphetamines Screen NEGATIVE, MDMA (Ecstasy) Screen NEGATIVE, U Benzodiazepines Scrn NEGATIVE, Urine Cocaine Screen NEGATIVE, U Cannabinoids Screen NEGATIVE, Ur Drug Screen Comment Physical Exam Const alert and no apparent distress HEENT head/scalp atraumatic and moist oral mucous membranes Assessment & Plan Assessment/Plan (1) Opiate withdrawal: PLAN: Buprenorphine taper Patient will follow-up with [facility] IOP after discharge. PLAN: Plan Tobacco use vaping and trying to cut back-Patient declined nicotine replacement DVT ppx: Ambulatory, low risk Charges/Coding Visit Charges Inpatient E&M: 12932 Subs Hosp L1
[2023-07-13 10:00] VITALS: BP 134/88; PULSE 67; RESP 13; TEMP 36.7; O2SAT 100
[2023-07-13] MEDS: Ibuprofen 600 MG Tablet PO ×2 (10:29→17:54)
[2023-07-13] MEDS: Dicyclomine 10 MG Capsule 20 MG PO ×2 (10:29→17:54)
--- NOTE | 2023-07-13 10:36 | ADDICTION ---
This policy writer met with PT to conduct ASAM, MSE, AUDIT, DUDIT assessments and to plan for d/c. PT A+Ox4 and participated actively. All assessments completed and placed in PT's chart. PT plans to f/u with going back to NA/AA meetings. Pt had a long stent of sobriety and believes he can get himself back on track. Pt was given resources for treatment options if he's unsuccessful. PT did not indicate a need for transportation post d/c from [facility].
[2023-07-13 14:35] VITALS: BP 104/72; PULSE 63; RESP 14; TEMP 36.4; O2SAT 100
[2023-07-13] MEDS: hydrOXYzine PAM 25 MG Capsule 50 MG PO (17:54)
--- NOTE | 2023-07-13 18:59 | NURSING ---
PT DECIDED HE WANTS TO LEAVE. DR HIGGINBOTHAM AWARE. AMA SIGNED
== END 2023-07-13 19:09 | disposition left against medical advice (07) | DRG 770 ==
LOC: ED 18:47 → MS3 07-13 07:06
PROVIDERS: Admitting Provider Hospitalist; Emergency Provider Emergency Medicine
DX: F11.23 Opioid dependence with withdrawal (principal); F17.290 Nicotine dependence, other tobacco product, uncomplicated
CPT/HCPCS: 36415; 80053; 80307; 82077; 85025; 99221; 99283; G0378

== ENCOUNTER 2024-02-24 10:14 | Inpatient (IN) | payer MEDICAID, SELFPAY ==
[2024-02-24] VITALS (7 sets, daily range): BP systolic 130–155; BP diastolic 82–97; PULSE 67–108; RESP 16–18; TEMP 36.3–36.9; O2SAT 95–100; BMI 26.5
--- NOTE | 2024-02-24 10:28 | EDS_ITS ---
HPI History of Present Illness Chief Complaint: Substance Abuse Detail of Chief Complaint: Requesting detox from heroin Informant: patient Narrative Narrative: Patient presents to the emergency department requesting detox from heroin. Bria ent states that he uses daily about half a gram. He either snorts it or smokes it. He does not use IV. States that on a rare occasion he will use methamphetamines. Last use was a few hours ago. He has gone through detox here for same he believes within the last year. He has no medical history otherwise. Denies alcohol use. PFSH PFS Medical History Anxiety Depression Smoker Home Medications NK 07/12/23 [History Last Taken Unknown] Allergy/AdvReac Type Severity Reaction Status Date / Time No Known Allergies Allergy Verified 02/24/24 10:14 Social History Smoking Status: Current every day smoker tobacco type: e-cigarettes ROS ROS ED ROS Narrative Anxious Review of Systems ROS Unobtainable: other Constitutional Constitutional ED: Reports lethargy; Denies chills, fever(s), sweats or weight loss Eyes Eyes: Denies blurry vision, change in vision or diplopia ENT ENT ED: Denies rhinorrhea or sore throat Cardiovascular Cardiovascular: Denies chest pain, orthopnea or racing heartbeat Respiratory/Chest Respiratory/Chest: Denies cough, dyspnea, dyspnea on exertion, orthopnea or sputum Gastrointestinal Gastrointestinal: Denies abdominal pain, diarrhea, nausea or vomiting Genitourinary Genitourinary ED: Denies dysuria, hematuria or urinary frequency Musculoskeletal Musculoskeletal: Denies arthralgias, back pain, myalgias or neck pain Integumentary Denies abscess, Abrasions or rash Neurologic Neurologic: Denies headache(s) or weakness Psychiatric Psychiatric: Denies anxiety, depression or suicidal thoughts Endocrine Endocrinology: Denies polydipsia, polyphagia or polyuria Hematologic/Lymphatic Hematologic/Lymphatic: Denies easy bleeding, easy bruising or lymphadenopathy Allergic/Immunologic Allergic/Immunologic ED: Denies mouth swelling, tongue swelling or urticaria EXAM Physical Exam Const Vital Signs: 02/24/24 10:15 Temperature 97.6 F L Temperature Source Temporal Pulse Rate 75 Respiratory Rate 18 Blood Pressure 155/88 H Blood Pressure Mean 110 Pulse Ox 100 Oxygen Delivery Method Room Air Positive well nourished and well developed General Appearance ED: well developed and NAD HEENT Reports TM's clear and moist mucous membranes normocephalic and atraumatic; Negative for trauma or tenderness Tympanic Membrane ED: Yes TM's clear Eyes PERRL and EOMs intact bilaterally General Eye ED: Negative for pale conjunctiva or scleral icterus Neck no lymphadenopathy, supple and no JVD General: Negative for tenderness Chest Wall inspection of chest normal and palpation of chest normal Chest: Negative for tenderness Resp normal respiratory effort and clear to auscultation bilaterally Effort and Inspection: Negative for respiratory distress or pain with movement Auscultation: Negative for rhonchi, wheezes or diminished lung sounds Cardio regular rate, regular rhythm, S1 normal heart sound, S2 normal heart sound and no murmurs Peripheral Pulses: pulses 2+ throughout GI normal to inspection, nondistended, normoactive bowel sounds, soft to palpation, non-tender, non-distended and no masses Back/Spine no CVA tenderness and no thoracic nor lumbar tenderness Extremity normal to inspection General Extremety ED: Negative for edema General Extremity: Negative for edema Neuro oriented x3, CN's II-XII intact bilaterally, no sensory deficits noted and gait normal Sensorium / Orientation: awake, alert, oriented to person, oriented to place and oriented to time Motor Exam: strength 5/5 throughout and strength abnormal Psych mental status grossly normal Skin no rashes or lesions noted and no wounds MDM MDM MDM Narrative Medical decision making narrative: Patient presents with request for detox from heroin. He was given 8 mg of Ativan for anxiety. Lab Data Attestation: I reviewed the patient's lab results. Discharge Plan Triage Chief Complaint: Substance Abuse ED Provider: Waldemar Roper Dx/Rx/DC Orders Clinical Impression: Desire for detoxification, Heroin abuse Prescriptions: No Action NK Primary Care Provider: Care Physician,No Primary Referrals: Care Physician,No Primary [Primary Care Provider] - Disposition Disposition: Acute Care Hospital [facility]
[2024-02-24] MEDS: LORazepam 1 MG Tablet PO (10:36)
[2024-02-24 10:55] LABS: Absolute Lymphocyte Count 1.46 X10^3/uL (0.83-4.51); Absolute Neutrophil Count 4.9 X10^3/uL (2.0-7.7); Basophil# 0.04 X10^3/uL; Basophil% 0.6 % (0-1); Eosinophils% 4.1 % (0-5); Hematocrit 42.8 % (40-54); Hemoglobin 14.9 g/dL (13.0-16.5); Lymphocyte # 1.46 X10^3/ul (0.83-4.51); Lymphocyte % 20.2 % (19-41); Mean Corp Hgb Conc 34.8 g/dL (32-36); Mean Corpuscular Hgb 28.9 pg (27.0-32.0); Mean Corpuscular Volume 83.1 fL (80-94); Mean Platelet Vol. 9.8 fl (6.2-12.0); Monocyte# 0.49 X10^3/uL; Monocyte% 6.8 % (0-10); NRBC Flagged by Analyzer 0 % (0-5); Neutrophil # 4.92 X10^3/uL (2.7-7.7); Neutrophil % 67.9 % (47-70); Platelet Count 382 K/mm3 (150-450); RBC Distribution Width CV 12.5 % (11.6-14.6); RBC Distribution Width SD 37.7 fl (35.1-43.9); Red Blood Count 5.15 M/mm3 (4.6-6.2); White Blood Count 7.2 K/mm3 (4.4-11.0)
[2024-02-24 11:00] LABS: Amphetamine Urine VISTA NEGATIVE (<1000 ng/mL); Barbiturate Urine VISTA NEGATIVE (< 200 ng/mL); Benzodiazepine Urine VISTA NEGATIVE (< 200 ng/mL); Cocaine Urine VISTA NEGATIVE (< 300 ng/mL); Ecstacy Urine VISTA NEGATIVE (< 500 ng/mL); Methadone Urine VISTA NEGATIVE (< 300 ng/mL); PCP Urine VISTA NEGATIVE (< 25 ng/mL); THC Urine VISTA NEGATIVE (< 50 ng/mL); Vista UDS pH Range 7
[2024-02-24 11:12] LABS: Alcohol, Blood (Medical)-Serum < 3.0 mg/dL
[2024-02-24 11:14] LABS: ALB/GLOB Ratio 1.2 RATIO (0.9-2.4); AST(SGOT) 14 U/L (15-37); Alanine Aminotransfer ALT/SGPT 29 U/L (16-61); Albumin, Serum 3.8 g/dL (3.2-5.0); Alkaline Phosphatase 65 U/L (45-117); Anion Gap 4 (5-15); BUN 12 mg/dL (7-18); BUN/Creat Ratio 16.2 RATIO (10-20); Calcium,Total 8.9 mg/dL (8.5-10.1); Chloride 108 mmol/L (98-107); Creatinine, Serum 0.74 mg/dL (0.70-1.30); EST Glomerular Filtration Rate 125 mL/min (>60); Est Glom Filt Rate - Afr Amer 152 mL/min (>60); Estimated Creatinine Clearance 161.77 ml/min; Globulin 3.1 g/dL (2.2-4.2); Glucose 116 mg/dL (74-106); Potassium 3.6 mmol/L (3.5-5.1); Protein, Total 6.9 g/dL (6.4-8.2); Sodium Level 141 mmol/L (136-145)
--- NOTE | 2024-02-24 11:24 | PCM.HP.STD ---
HPI - General General Date of Service: 02/24/24 Chief Complaint: heroin withdrawal HPI Narrative ANDRIY MOORE, is a 38 M with a PMH as outlined who presents via the ED on 02/04/2024 for acute opioid withdrawal. He uses ativan and says he smokes or snorts it. He uses about half a gram daily. He denies using it IV. His last use was a few hours prior to admission. He admits to some shakes and tremors but denies any fever, chills, or abdominal cramping, increased sweating. No nausea or vomiting or any other symptoms. Review of systems otherwise negative. He said he underwent detox here about 6 months to a year ago but left AMA. Vitals in the ED were blood pressure 155/88, pulse rate of 75, respiratory 8 of 18 and symptoms of night 7.629. He was saturating at 100% on room air. CBC was unremarkable and CMP was also unremarkable. Urine tox was negative and serum alcohol level was less than 3. He has been admitted and managed for acute opioid withdrawal. [facility] Medical History Anxiety Depression Smoker Home Medications NK 07/12/23 [History Last Taken Unknown] Allergy/AdvReac Type Severity Reaction Status Date / Time No Known Allergies Allergy Verified 02/24/24 10:14 Social History Smoking Status: Current every day smoker tobacco type: e-cigarettes ROS Review of Systems ROS Unobtainable: Denies due to encephalopathy Constitutional Constitutional: Reports fatigue; Denies anorexia, change in weight, chills, fever(s), malaise or weakness Eyes Eyes: Denies change in vision ENT HEENT: Denies dysphagia, headache(s) or hearing loss Cardiovascular Cardiovascular: Denies chest pain, dyspnea on exertion, edema, lightheadedness, orthopnea, palpitations, paroxysmal nocturnal dyspnea or rapid heart rate Respiratory/Chest Respiratory/Chest: Denies cough, dyspnea, shortness of breath at rest or shortness of breath with exertion Genitourinary Genitourinary: Denies dysuria Musculoskeletal Musculoskeletal: Denies arthralgias Neurologic Neurologic: Denies confusion, dizziness, focal weakness, headache(s) or numbness Psychiatric Psychiatric: Denies anxiety Endocrine Endocrinology: Denies change in body appearance Vital Signs Vital Signs Vital Signs: 02/24/24 10:15 Temperature 97.6 F L Temperature Source Temporal Pulse Rate 75 Respiratory Rate 18 Blood Pressure 155/88 H Blood Pressure Mean 110 Pulse Ox 100 Oxygen Delivery Method Room Air Weight Weight: 212 lb 3.2 oz Body Mass Index (BMI) 26.5 Physical Exam Const alert, oriented x3, no apparent distress and average body habitus General Appearance: cooperative HEENT normocephalic, head/scalp atraumatic, hearing grossly normal bilaterally and moist oral mucous membranes Mouth: oral and palatal mucosa normal Eyes PERRL, EOMs intact bilaterally and conjunctivae normal Neck no lymphadenopathy and supple Resp normal respiratory effort, no retractions, no use of accessory muscles and clear to auscultation bilaterally Cardio regular rate, regular rhythm, S1 normal heart sound, S2 normal heart sound and no murmurs GI normal to inspection, nondistended, normoactive bowel sounds, soft to palpation, non-tender and non-distended Extremity normal to inspection, full ROM and no clubbing, cyanosis or edema Neuro oriented x3, CN's II-XII intact bilaterally, moves all extremities and no focal motor deficits Sensorium / Orientation: awake and alert Motor Exam: strength 5/5 throughout Psych affect normal Results Lab / Micro Data 02/24/24 10:45 02/24/24 10:45 Labs: Laboratory Results - last 24 hr 02/24/24 10:35: Urine Opiates Screen NEGATIVE, Urine Methadone Screen NEGATIVE, Ur Barbiturates Screen NEGATIVE, Ur Phencyclidine Scrn NEGATIVE, Ur Amphetamines Screen NEGATIVE, MDMA (Ecstasy) Screen NEGATIVE, U Benzodiazepines Scrn NEGATIVE, Urine Cocaine Screen NEGATIVE, U Cannabinoids Screen NEGATIVE, Ur Drug Screen Comment 02/24/24 10:45: WBC 7.2, RBC 5.15, Hgb 14.9, Hct 42.8, MCV 83.1, MCH 28.9, MCHC 34.8, RDW Std Deviation 37.7, RDW Coeff of Kevin 12.5, Plt Count 382, MPV 9.8, Immature Gran % (Auto) 0.400, Neut % (Auto) 67.9, Lymph % (Auto) 20.2, [place] % (Auto) 6.8, Eos % (Auto) 4.1, Baso % (Auto) 0.6, Absolute Neuts (auto) 4.9, Absolute Lymphs (auto) 1.46, Nucleated RBC % 0, Sodium 141, Potassium 3.6, Chloride 108 H, Carbon Dioxide 29.0, Anion Gap 4 L, BUN 12, Creatinine 0.74, Estim Creat Clear Calc 161.77, Est GFR (MDRD) Af Amer 152, Est GFR (MDRD) Non-Af 125, BUN/Creatinine Ratio 16.2, Glucose 116 H, Calcium 8.9, Total Bilirubin 0.60, AST 14 L, ALT 29, Alkaline Phosphatase 65, Total Protein 6.9, Albumin 3.8, Globulin 3.1, Albumin/Globulin Ratio 1.2, Ethyl Alcohol < 3.0 Assessment & Plan Assessment/Plan (1) Opiate withdrawal: (2) Desire for detoxification: PLAN: Plan #Acute opioid withdrawal [facility] Start opioid withdrawal protocol with buprenorphine. Adjunctive meds for symptomatic relief. #Nicotine dependence: Smokes 1 pack of cigarettes daily. Nicotine patch 21 mg daily. DVT prophylaxis: Low risk. Encourage ambulation. Charges/Coding Visit Charges Inpatient E&M: 05602 Init Hosp L3
--- NOTE | 2024-02-24 11:25 | NURSING ---
DR MICHOACANO WALTER
--- NOTE | 2024-02-24 11:45 | NURSING ---
MED SURG ACUTE OPIATE WITHDRAWAL
[2024-02-24] MEDS: Methocarbamol 750 MG Tablet PO ×2 (13:20→18:50)
[2024-02-24] MEDS: Dicyclomine 10 MG Capsule 20 MG PO ×2 (13:20→18:50)
[2024-02-24] MEDS: Buprenorphine HCl 2 MG TAB.SUBL SL ×2 (13:20→22:07)
[2024-02-24] MEDS: hydrOXYzine PAM 25 MG Capsule 50 MG PO ×2 (13:20→18:50)
[2024-02-24] MEDS: cloNIDine HCl 0.1 MG Tablet PO (14:14)
[2024-02-24] MEDS: Ondansetron 8 MG Tablet PO (14:45)
[2024-02-24] MEDS: Gabapentin 300 MG Capsule PO (16:31)
[2024-02-24] MEDS: traZODone 100 MG Tablet PO (22:10)
[2024-02-25 05:08] VITALS: BP 125/72; PULSE 68; RESP 16; TEMP 36.4; O2SAT 96
[2024-02-25] MEDS: Buprenorphine HCl 2 MG TAB.SUBL SL ×2 (05:11→13:33)
--- NOTE | 2024-02-25 08:24 | ADDICTION ---
clinician briefly met with client. he is feeling bad. client endorsed severe sx's of anxiety and opioid withdrawal. clinician will meet with client tomorrow, 02/26/24 to further discuss tx options.
[2024-02-25 08:34] VITALS: BP 125/73; PULSE 73; RESP 18; TEMP 36.4; O2SAT 97
[2024-02-25] MEDS: Methocarbamol 750 MG Tablet PO (08:36)
[2024-02-25] MEDS: Gabapentin 300 MG Capsule PO (08:36)
[2024-02-25] MEDS: Dicyclomine 10 MG Capsule 20 MG PO (08:39)
[2024-02-25] MEDS: hydrOXYzine PAM 25 MG Capsule 50 MG PO (08:39)
--- NOTE | 2024-02-25 09:39 | PN_ITS ---
Subjective Subjective Patient seen and examined. He had no active complaints. He denies any withdrawal symptoms. Review of systems is otherwise negative. Objective Data Objective Data Vital Signs: Vital Signs Temp Pulse Resp BP Pulse Ox O2 Del Method 97.5 F L 73 18 125/73 H 97 Room Air 02/25/24 08:34 02/25/24 08:34 02/25/24 08:34 02/25/24 08:34 02/25/24 08:34 02/25/24 08:34 Oxygen Delivery Method Room Air Weight: 212 lb 3.2 oz Body Mass Index (BMI) 26.5 Intake & Output: Intake and Output for Last 24 Hours 02/23/24 02/24/24 02/25/24 23:59 23:59 23:59 Intake Total 450 / 450 700 / 700 Balance 450 / 450 700 / 700 Lab / Micro Data 02/24/24 10:45 02/24/24 10:45 Labs: Laboratory Results - last 24 hr 02/24/24 10:35: Urine Opiates Screen NEGATIVE, Urine Methadone Screen NEGATIVE, Ur Barbiturates Screen NEGATIVE, Ur Phencyclidine Scrn NEGATIVE, Ur Amphetamines Screen NEGATIVE, MDMA (Ecstasy) Screen NEGATIVE, U Benzodiazepines Scrn NEGATIVE, Urine Cocaine Screen NEGATIVE, U Cannabinoids Screen NEGATIVE, Ur Drug Screen Comment 02/24/24 10:45: WBC 7.2, RBC 5.15, Hgb 14.9, Hct 42.8, MCV 83.1, MCH 28.9, MCHC 34.8, RDW Std Deviation 37.7, RDW Coeff of Kevin 12.5, Plt Count 382, MPV 9.8, Immature Gran % (Auto) 0.400, Neut % (Auto) 67.9, Lymph % (Auto) 20.2, [place] % (Auto) 6.8, Eos % (Auto) 4.1, Baso % (Auto) 0.6, Absolute Neuts (auto) 4.9, Absolute Lymphs (auto) 1.46, Nucleated RBC % 0, Sodium 141, Potassium 3.6, Chloride 108 H, Carbon Dioxide 29.0, Anion Gap 4 L, BUN 12, Creatinine 0.74, Estim Creat Clear Calc 161.77, Est GFR (MDRD) Af Amer 152, Est GFR (MDRD) Non-Af 125, BUN/Creatinine Ratio 16.2, Glucose 116 H, Calcium 8.9, Total Bilirubin 0.60, AST 14 L, ALT 29, Alkaline Phosphatase 65, Total Protein 6.9, Albumin 3.8, Globulin 3.1, Albumin/Globulin Ratio 1.2, Ethyl Alcohol < 3.0 Physical Exam Const alert, oriented x3, no apparent distress and average body habitus General Appearance: cooperative HEENT normocephalic, head/scalp atraumatic, hearing grossly normal bilaterally and moist oral mucous membranes Eyes PERRL, EOMs intact bilaterally and conjunctivae normal Neck no lymphadenopathy and supple Resp normal respiratory effort, no retractions, no use of accessory muscles and clear to auscultation bilaterally Cardio regular rate, regular rhythm, S1 normal heart sound, S2 normal heart sound and no murmurs GI normal to inspection, nondistended, normoactive bowel sounds, soft to palpation, non-tender and non-distended Extremity normal to inspection, full ROM and no clubbing, cyanosis or edema General Extremity: no tenderness to palpation of joints or extremities Skin General Skin Exam: no breakdown Neuro oriented x3, CN's II-XII intact bilaterally, moves all extremities and no focal motor deficits Sensorium / Orientation: awake and alert Motor Exam: strength 5/5 throughout Psych affect normal Appearance: appropriate Assessment & Plan Assessment/Plan (1) Opiate withdrawal: (2) Desire for detoxification: PLAN: Plan #Acute opioid withdrawal * On opioid withdrawal protocol with buprenorphine. * Adjunctive meds for symptomatic relief. * monitor CINA score * #Nicotine dependence: Smokes 1 pack of cigarettes daily. Nicotine patch 21 mg daily. DVT prophylaxis: Low risk. Encourage ambulation. Charges/Coding Visit Charges Inpatient E&M: 48534 Subs Hosp L2
[2024-02-25 13:31] VITALS: BP 121/67; PULSE 77; RESP 16; TEMP 36.5; O2SAT 97
--- NOTE | 2024-02-25 15:20 | DS.PCM_ITS ---
Providers Date of Admission: 02/24/24 Date of Discharge: 02/25/24 Primary Care Physician: No Primary Care Phys Reason For Visit: ACUTE OPIOID WITHDRAWAL Diagnosis Discharge Diagnosis (1) Opiate withdrawal: Status: Acute Code(s): F11.93 - Opioid use, unspecified with withdrawal (2) Desire for detoxification: Status: Acute Plan #Acute opioid withdrawal * On opioid withdrawal protocol with buprenorphine. * Adjunctive meds for symptomatic relief. * monitor CINA score * #Nicotine dependence: Smokes 1 pack of cigarettes daily. Nicotine patch 21 mg daily. DVT prophylaxis: Low risk. Encourage ambulation. Medications at Discharge Home Medications NK 07/12/23 Hospital Course Operations None Procedures None Summary of Care Provided Minutes Spent on Discharge: 38 Hospital Course: ANDRIY MOORE, is a 38 M with a PMH as outlined who presents via the ED on 02/04/2024 for acute opioid withdrawal. He uses heroin and says he smokes or snorts it. He uses about half a gram daily. He denies using it IV. His last use was a few hours prior to admission. He admits to some shakes and tremors but denies any fever, chills, or abdominal cramping, increased sweating. No nausea or vomiting or any other symptoms. Review of systems otherwise negative. He said he underwent detox here about 6 months to a year ago but left AMA. Vitals in the ED were blood pressure 155/88, pulse rate of 75, respiratory 8 of 18 and symptoms of night 7.629. He was saturating at 100% on room air. CBC was unremarkable and CMP was also unremarkable. Urine tox was negative and serum alcohol level was less than 3. He was admitted and managed for acute opioid withdrawal. He was placed on opioid withdrawal protocol with buprenorphine. He tolerated the detox for one day, but signed out AMA on 02/25/2024. Patient was seen and examined on the morning of the day he signed out AGAINST MEDICAL ADVICE. He had no active complaints and was willing to stay but subsequently decided to sign out AMA. Systems otherwise negative. Physical Exam Const alert, oriented x3, no apparent distress and average body habitus General Appearance: cooperative, comfortable and well kempt HEENT normocephalic, head/scalp atraumatic, hearing grossly normal bilaterally and moist oral mucous membranes Mouth: oral and palatal mucosa normal Eyes PERRL, EOMs intact bilaterally and conjunctivae normal Neck no lymphadenopathy and supple Resp normal respiratory effort, no retractions, no use of accessory muscles and clear to auscultation bilaterally Cardio regular rate, regular rhythm, S1 normal heart sound, S2 normal heart sound and n o murmurs GI normal to inspection, nondistended, normoactive bowel sounds, soft to palpation, non-tender and non-distended Extremity normal to inspection, full ROM and no clubbing, cyanosis or edema General Extremity: no tenderness to palpation of joints or extremities Skin no rashes or lesions noted General Skin Exam: no breakdown Neuro oriented x3, CN's II-XII intact bilaterally, moves all extremities and no focal motor deficits Sensorium / Orientation: awake and alert Motor Exam: strength 5/5 throughout Psych affect normal Appearance: appropriate Weight / BMI Weight Weight: 212 lb 3.2 oz Body Mass Index (BMI) 26.5 ABG / Lab / Microbiology Data 02/24/24 10:45 02/24/24 10:45 D/C Instructions Discharge Diet: Low fat / Low cholesterol Discharge Activity: Return to Normal Activity Weight Bearing Status: Weight bearing as tolerated Meaningful Use Info Meaningful Use Meaningful Use Diagnoses (Choose all that apply): None applicable Ischemic Stroke Statin Dosing Therapy Reference: STATIN DOSE THERAPY REFERENCE: * Patients > 75 years receive moderate or high dose statin therapy. * Patients 75 years or YOUNGER should receive HIGH intensity statin dose unless contraindicated. You will be required to document reason for non-treatment if statin daily dose does not meet guidelines. HIGH DOSE STATIN THERAPY DAILY Atorvastatin > than or = to 40 mg Rosuvastatin > than or = to 20 mg Amlodipine + Atorvastatin > than or = to 2.5/40 mg Ezetimibe + Simvastatin 10/80 mg Simvastatin 80mg Discharge Plan Admission Admit Date/Time: 02/24/24 11:38 Primary Reason for Your Visit: acute opioid withdrawal Attending Provider: Leti Boothe Primary Care Provider: Care Physician,Carol Primary Discharge Orders/Prescriptions Prescriptions: No Action NK Referrals / Follow Up: Care Physician,No Primary [Primary Care Provider] - Disposition Disposition (needs filled in before D/C Order can be placed): Against Medical Advice Charges/Coding Visit Charges Inpatient E&M: 31960 Disch Hosp >30min
--- NOTE | 2024-02-25 15:57 | CHAPLAIN ---
Type of Pastoral Visit _x__ Initial Visit ___ Follow-up Visit ___ On-call Visit ___ General Patient Visit ___ Spiritual Assessment ___ Family Conference ___ Bereavement ___ Rapid Response ___ Code Blue ___ Other (describe below) Pastoral Care Referral From _x__ Patient ___ Family ___ Nurse ___ Physician ___ Sprinkler Helper ___ Puncher And Fastener ___ Other (describe below) Sacrament/Intervention _x__ Active listening ___ Anointing ___ Confucianism ___ Bereavement ___ Communion _x__ Kay exploration ___ _x__ Life review _x__ Prayer ___ Reconciliation ___ Sacrament of Sick _x__ Supportive presence ___ Wedding ___ Other (describe below) Pastoral Comments patient was alert and able to have conversation explaining his relapse and hopes for getting back on track; pt has a teenage son with whom he has a good relationship; pt explains his current situation, but then also leads into explanation of his own childhood and past traumas that he does not talk about; pt admits that he has only his mother that is supportive and has no one else in his life except son; pt is worried about paying his bills before tomorrow's deadline for electric shut off; pt states that he is not christian and has never known much about God or how that can help; pt states he has nothing against God or pentecostal and a prayer for him would be acceptable today
--- NOTE | 2024-02-25 16:42 | NURSING ---
PT LEFT AMA AT 1459- TALKED WITH HIM IN THE VALLES BY THE ELEVATOR AND SAID HE HAD TO LEAVE HE HAD SOME OVERDUE BILLS THAT NEEDED PAID THAT HE HAD FORGOT ABOUT... DR AWARE THAT PT LEFT
== END 2024-02-25 15:02 | disposition left against medical advice (07) | DRG 770 ==
LOC: ED 11:35 → MS3 12:08
PROVIDERS: Admitting Provider Student in an Organized Health Care Education/Training Program; Emergency Provider Emergency Medicine; Visit Provider Student in an Organized Health Care Education/Training Program
DX: F11.93 Opioid use, unspecified with withdrawal (principal); F17.290 Nicotine dependence, other tobacco product, uncomplicated
CPT/HCPCS: 80053; 80307; 80320; 85025; 99283; G0480